=== PATIENT | female | born 1970 | race Hispanic/Latino ===

== ENCOUNTER 2023-02-16 13:51 | Inpatient (IN) | payer OTHER ==
[~2023-02-16] VITALS: Ht 152.4 cm; Wt 98.2 kg
[2023-02-16 17:07] VITALS: BP 159/86; PULSE 75; RESP 18
[2023-02-16 18:01] VITALS: O2SAT 96
[2023-02-16 20:00] VITALS: BP 154/89; PULSE 82; RESP 20; O2SAT 95
[2023-02-16] MEDS ORDERED: HEPARIN 25,000 UNITS/250ML D5W 250 ML IV ONE (22:01)
[2023-02-16] MEDS: HEPARIN 25,000 UNITS/250ML D5W 250 ML IV PRN (22:21)
[2023-02-17] VITALS (8 sets, daily range): BP systolic 147–176; BP diastolic 79–106; PULSE 73–84; RESP 18–20; O2SAT 94–96
[2023-02-17] MEDS ORDERED: HEPARIN 5,000 UNIT VIAL IV SCH (01:40)
[2023-02-17 03:59] LABS: HEMATOCRIT 32.5 % (36-48); MEAN CORPUSCULAR HEMOGLOBIN 28.2 pg (27.0-33.0); MEAN CORPUSCULAR HGB CONC 30.2 g/dL (32.0-36.0); MEAN CORPUSCULAR VOLUME 93.7 fL (79-99); PLATELET COUNT (AUTO) 229 K/uL (130-400); RED BLOOD CELL COUNT(AUTO) 3.47 MIL/uL (4.00-5.50); RED CELL DISTRIBUTION WIDTH 15.9 % (11.0-15.5); WHITE BLOOD COUNT (AUTO) 7.5 K/uL (4.8-10.8)
[2023-02-17 04:13] LABS: INR 0.99 (0.85-1.15); PROTHROMBIN TIME 11.5 SEC (9.6-11.6)
[2023-02-17 04:15] LABS: CREATININE 3.5 mg/dL (0.5-1.5); POTASSIUM 3.7 mmol/L (3.5-5.1)
[2023-02-17 04:28] LABS: ALBUMIN 2.2 g/dL (3.5-5.0); B-TYPE NATRIURETIC PEPTIDE 1920 pg/mL (0-100); BILIRUBIN,TOTAL 0.3 mg/dL (0.2-1.0); TOTAL PROTEIN, SERUM 6.2 g/dL (6.0-8.3)
[2023-02-17 04:31] LABS: HEMOGLOBIN A1C 7.8 % (4.0-6.0)
[2023-02-17 04:36] LABS: PARTIAL THROMBOPLASTIN TIME > 139.0 SEC (26.3-35.5)
[2023-02-17] MEDS ORDERED: LISI40TA9 PO (07:57)
[2023-02-17] MEDS ORDERED: METOPROLOL TARTRATE 25 MG TAB PO ONE (08:30)
[2023-02-17] MEDS ORDERED: CEFAZOLIN SODIUM 1 GM VIAL ONE (11:59)
[2023-02-17] MEDS ORDERED: PAPAVERINE HCL 30 MG/ML 2ML VIAL ONE (11:59)
[2023-02-17] MEDS ORDERED: NOREPINEPHRINE BITARTRATE 8 MG in 0.9% NACL 250ML 250 ML IV PRN (12:30)
[2023-02-17] MEDS ORDERED: EPINEPHRINE PF 1MG (1:1,000) 10 MG in 0.9% NACL 250ML 240 ML IV PRN (12:30)
[2023-02-17] MEDS ORDERED: AMINOCAPROIC ACID 5,000MG VIAL 15,000 MG in 0.9% NACL 500ML IV.SOLN 420 ML IV PRN (12:30)
[2023-02-17] MEDS ORDERED: AMLODIPINE 5 MG TAB PO SCH (13:30)
[2023-02-17] MEDS ORDERED: ONDANSETRON 4MG INJ IV PRN (13:30)
[2023-02-17] MEDS ORDERED: POLYETHYLENE GLYCOL 3350 17 GM POWD.PACK PO PRN (13:30)
[2023-02-17] MEDS ORDERED: DOCUSATE SODIUM 100 MG CAP PO PRN (13:30)
[2023-02-17] MEDS ORDERED: ALPRAZOLAM 0.5 MG TABLET PO PRN (13:30)
[2023-02-17] MEDS: INSULIN GLARGINE 100 UNITS/ML 10 ML VIAL SQ SCH ×2 (13:30→16:43)
[2023-02-17] MEDS ORDERED: BUMETANIDE 1MG/4ML VIAL IVP SCH (13:30)
[2023-02-17] MEDS ORDERED: LACTULOSE 20 GM/30 ML UDCUP PO PRN (13:30)
[2023-02-17] MEDS ORDERED: DIPHENHYDRAMINE HCL 25 MG CAPSULE PO PRN (13:30)
[2023-02-17] MEDS ORDERED: DiphenhydrAMINE HCL 50 MG/ML VIAL IV PRN (13:30)
[2023-02-17] MEDS ORDERED: ACETAMINOPHEN 325 MG TAB PO PRN ×2 (13:30)
[2023-02-17] MEDS ORDERED: GUAIFENESIN-DM 200/20 MG 10 ML PO PRN (13:30)
[2023-02-17] MEDS ORDERED: HYDRALAZINE 25MG TABLET PO PRN (13:30)
[2023-02-17] MEDS ORDERED: NITROGLYCERIN 0.4 MG SL TAB SL PRN (13:30)
[2023-02-17] MEDS ORDERED: GUAIFENESIN SUGAR-FREE 100 MG/5 ML UDCUP PO PRN (13:30)
[2023-02-17] MEDS ORDERED: ZOLPIDEM TARTRATE 5 MG TAB PO PRN (13:30)
[2023-02-17] MEDS: FUROSEMIDE 40MG VIAL IV SCH (14:17)
[2023-02-17] MEDS: HEPARIN 25,000 UNITS/250ML D5W 250 ML IV PRN (14:23)
[2023-02-17 15:44] LABS: APPEARANCE,URINE CLEAR (CLEAR); BILIRUBIN,URINE NEGATIVE (NEGATIVE); COLOR,URINE LIGHT-YELLOW (YELLOW); GLUCOSE, URINE (UA) 300 mg/dL (NEGATIVE); KETONES,URINE NEGATIVE (NEGATIVE); LEUKOCYTE ESTERASE ,URINE NEGATIVE Leu/uL (NEGATIVE); NITRATE,URINE NEGATIVE (NEGATIVE); OCCULT BLOOD,URINE SMALL (NEGATIVE); PH,URINE 7.5 (5.0-8.0); PROTEIN,URINE 600 mg/dL (NEGATIVE); UROBILINOGEN,URINE 0.2 mg/dL (0.2-1.0)
[2023-02-17 15:50] LABS: MUCUS,URINE RARE LPF (None Seen); SQUAMOUS EPITHELIAL CELL,UR RARE /HPF (0-2)
[2023-02-17] MEDS ORDERED: GLUCAGON 1MG KIT 1 MG ML IM PRN (16:00)
[2023-02-17] MEDS ORDERED: DEXTROSE 50%-WATER 50 ML DISP.SYRIN IV PRN (16:00)
[2023-02-17] MEDS: INSULIN HUMULIN R 100 UNIT/ML 3ML SQ SCH ×2 (16:43→21:41)
[2023-02-17] MEDS: CEFAZOLIN SODIUM 2 GM VIAL IVPB SCH (18:10)
[2023-02-17] MEDS: CHLORHEXIDINE GLUCONATE 15 ML MOUTHWASH MM SCH (21:00)
[2023-02-17] MEDS: MUPIROCIN OINTMENT 22 GM TUBE TP SCH ×2 (21:00→22:30)
[2023-02-17] MEDS: FAMOTIDINE 20MG TAB PO SCH (21:41)
[2023-02-18] VITALS (13 sets, daily range): BP systolic 127–172; BP diastolic 62–88; PULSE 67–84; RESP 18–21; O2SAT 92–96
[2023-02-18] MEDS ORDERED: METOPROLOL TARTRATE 25 MG TAB PO ONE (01:00)
[2023-02-18] MEDS ORDERED: AMLODIPINE 5 MG TAB PO ONE (01:00)
[2023-02-18] MEDS: NITROGLYCERIN 1GM OINT 1 INCH/1GM TD SCH ×4 (01:25→17:30)
[2023-02-18] MEDS: FUROSEMIDE 40MG VIAL IV SCH ×2 (01:26→13:40)
[2023-02-18] MEDS: INSULIN HUMULIN R 100 UNIT/ML 3ML SQ SCH ×4 (05:54→20:41)
[2023-02-18] MEDS: HEPARIN 25,000 UNITS/250ML D5W 250 ML IV PRN (06:15)
[2023-02-18 06:50] LABS: BASOPHILS # (AUTO) 0.04 K/uL (0.00-0.20); BASOPHILS % (AUTO) 0.6 % (0.0-5.0); EOSINOPHILS # (AUTO) 0.33 K/uL (0.00-0.70); EOSINOPHILS % (AUTO) 4.9 % (0.0-8.0); HEMATOCRIT 32.8 % (36-48); IMMATURE GRANULOCYTE ABSOLUTE 0.01 K/uL (0-1); LYMPHOCYTES # (AUTO) 2.4 K/uL (1.0-4.8); LYMPHOCYTES % (AUTO) 35.4 % (21.0-51.0); MEAN CORPUSCULAR HEMOGLOBIN 27.9 pg (27.0-33.0); MEAN CORPUSCULAR HGB CONC 29.6 g/dL (32.0-36.0); MEAN CORPUSCULAR VOLUME 94.3 fL (79-99); MONOCYTES # (AUTO) 0.9 K/uL (0.1-1.0); MONOCYTES % (AUTO) 13.6 % (3.0-13.0); NEUTROPHILS % (AUTO) 45.4 % (40.0-77.0); PLATELET COUNT (AUTO) 247 K/uL (130-400); RED BLOOD CELL COUNT(AUTO) 3.48 MIL/uL (4.00-5.50); RED CELL DISTRIBUTION WIDTH 16.1 % (11.0-15.5); WHITE BLOOD COUNT (AUTO) 6.7 K/uL (4.8-10.8)
[2023-02-18 07:02] LABS: CREATININE 3.6 mg/dL (0.5-1.5); POTASSIUM 3.7 mmol/L (3.5-5.1)
[2023-02-18] MEDS: METOPROLOL TARTRATE 25 MG TAB PO SCH ×2 (08:29→20:40)
[2023-02-18] MEDS: AMLODIPINE 5 MG TAB PO SCH ×2 (08:29→20:39)
[2023-02-18] MEDS: FAMOTIDINE 20MG TAB PO SCH ×2 (08:29→20:39)
[2023-02-18] MEDS: MUPIROCIN OINTMENT 22 GM TUBE TP SCH ×2 (08:30→20:45)
[2023-02-18] MEDS: CHLORHEXIDINE GLUCONATE 15 ML MOUTHWASH MM SCH ×2 (08:30→20:46)
[2023-02-18] MEDS: INSULIN GLARGINE 100 UNITS/ML 10 ML VIAL SQ SCH ×2 (08:32→17:31)
[2023-02-18] MEDS: CEFAZOLIN SODIUM 2 GM VIAL IVPB SCH (16:30)
[2023-02-19] VITALS (8 sets, daily range): BP systolic 135–156; BP diastolic 73–85; PULSE 70–77; RESP 18–20; O2SAT 92–99
[2023-02-19] MEDS: HEPARIN 25,000 UNITS/250ML D5W 250 ML IV PRN ×2 (00:07→19:19)
[2023-02-19] MEDS: NITROGLYCERIN 1GM OINT 1 INCH/1GM TD SCH ×5 (00:38→23:23)
[2023-02-19] MEDS: FUROSEMIDE 40MG VIAL IV SCH ×4 (01:40→20:17)
[2023-02-19 01:48] LABS: BASOPHILS # (AUTO) 0.06 K/uL (0.00-0.20); BASOPHILS % (AUTO) 0.7 % (0.0-5.0); EOSINOPHILS # (AUTO) 0.37 K/uL (0.00-0.70); EOSINOPHILS % (AUTO) 4.4 % (0.0-8.0); HEMATOCRIT 34.2 % (36-48); IMMATURE GRANULOCYTE ABSOLUTE 0.03 K/uL (0-1); LYMPHOCYTES # (AUTO) 2.8 K/uL (1.0-4.8); LYMPHOCYTES % (AUTO) 33.5 % (21.0-51.0); MEAN CORPUSCULAR HEMOGLOBIN 27.9 pg (27.0-33.0); MEAN CORPUSCULAR HGB CONC 29.8 g/dL (32.0-36.0); MEAN CORPUSCULAR VOLUME 93.4 fL (79-99); MONOCYTES # (AUTO) 0.9 K/uL (0.1-1.0); MONOCYTES % (AUTO) 11.2 % (3.0-13.0); NEUTROPHILS # (AUTO) 4.2 K/uL (1.8-7.7); NEUTROPHILS % (AUTO) 49.8 % (40.0-77.0); PLATELET COUNT (AUTO) 240 K/uL (130-400); RED BLOOD CELL COUNT(AUTO) 3.66 MIL/uL (4.00-5.50); RED CELL DISTRIBUTION WIDTH 15.7 % (11.0-15.5); WHITE BLOOD COUNT (AUTO) 8.4 K/uL (4.8-10.8)
[2023-02-19 01:57] LABS: CREATININE 3.7 mg/dL (0.5-1.5); POTASSIUM 3.8 mmol/L (3.5-5.1)
[2023-02-19] MEDS ORDERED: KCL 20 MEQ ERTAB PO ONE (05:40)
[2023-02-19] MEDS: INSULIN HUMULIN R 100 UNIT/ML 3ML SQ SCH ×4 (07:30→20:18)
[2023-02-19] MEDS: INSULIN GLARGINE 100 UNITS/ML 10 ML VIAL SQ SCH ×2 (07:30→16:30)
[2023-02-19] MEDS: AMLODIPINE 5 MG TAB PO SCH ×2 (08:50→20:16)
[2023-02-19] MEDS: METOPROLOL TARTRATE 25 MG TAB PO SCH ×2 (08:50→20:16)
[2023-02-19] MEDS: FAMOTIDINE 20MG TAB PO SCH ×2 (08:50→20:16)
[2023-02-19] MEDS: MUPIROCIN OINTMENT 22 GM TUBE TP SCH ×2 (08:51→20:25)
[2023-02-19] MEDS: CHLORHEXIDINE GLUCONATE 15 ML MOUTHWASH MM SCH ×2 (08:51→20:25)
[2023-02-19] MEDS ORDERED: CEFAZOLIN SODIUM 1 GM VIAL IVPB SCH (11:00)
[2023-02-19] MEDS: ASPIRIN 81MG CHEW TAB PO SCH (12:23)
[2023-02-19 12:48] LABS: PROTEIN,URINE RANDOM 481.7 mg/dL (0-11.9)
[2023-02-19 14:56] LABS: INR 1.01 (0.85-1.15); PROTHROMBIN TIME 11.7 SEC (9.6-11.6)
[2023-02-19 14:58] LABS: PARTIAL THROMBOPLASTIN TIME 57.3 SEC (26.3-35.5)
[2023-02-19] MEDS ORDERED: ATORVASTATIN 40 MG TABLET PO SCH (21:00)
[2023-02-20] VITALS (19 sets, daily range): BP systolic 95–191; BP diastolic 43–104; PULSE 68–87; RESP 12–20; TEMP 96.2; O2SAT 95–100
[2023-02-20 04:50] LABS: BASOPHILS # (AUTO) 0.04 K/uL (0.00-0.20); BASOPHILS % (AUTO) 0.5 % (0.0-5.0); EOSINOPHILS % (AUTO) 5.1 % (0.0-8.0); HEMATOCRIT 32.7 % (36-48); IMMATURE GRANULOCYTE ABSOLUTE 0.01 K/uL (0-1); LYMPHOCYTES # (AUTO) 2.7 K/uL (1.0-4.8); LYMPHOCYTES % (AUTO) 34.5 % (21.0-51.0); MEAN CORPUSCULAR HEMOGLOBIN 27.9 pg (27.0-33.0); MEAN CORPUSCULAR VOLUME 93.2 fL (79-99); MONOCYTES # (AUTO) 0.9 K/uL (0.1-1.0); MONOCYTES % (AUTO) 11.8 % (3.0-13.0); NEUTROPHILS # (AUTO) 3.8 K/uL (1.8-7.7); PLATELET COUNT (AUTO) 236 K/uL (130-400); RED BLOOD CELL COUNT(AUTO) 3.51 MIL/uL (4.00-5.50); RED CELL DISTRIBUTION WIDTH 15.8 % (11.0-15.5); WHITE BLOOD COUNT (AUTO) 7.9 K/uL (4.8-10.8)
[2023-02-20 05:05] LABS: CREATININE 3.7 mg/dL (0.5-1.5); POTASSIUM 3.9 mmol/L (3.5-5.1)
[2023-02-20 05:09] LABS: ALBUMIN 2.2 g/dL (3.5-5.0); BILIRUBIN,TOTAL 0.2 mg/dL (0.2-1.0); PHOSPHORUS 4.5 mg/dL (2.5-4.9); TOTAL PROTEIN, SERUM 6.2 g/dL (6.0-8.3)
[2023-02-20 05:10] LABS: INR 0.99 (0.85-1.15); PROTHROMBIN TIME 11.5 SEC (9.6-11.6)
[2023-02-20 05:11] LABS: PARTIAL THROMBOPLASTIN TIME 42.9 SEC (26.3-35.5)
[2023-02-20 05:19] LABS: B-TYPE NATRIURETIC PEPTIDE 1480 pg/mL (0-100)
[2023-02-20 05:38] LABS: % IRON SATURATION 8.9 % (22-44)
[2023-02-20] MEDS: NITROGLYCERIN 1GM OINT 1 INCH/1GM TD SCH ×2 (06:00→12:10)
[2023-02-20] MEDS: INSULIN HUMULIN R 100 UNIT/ML 3ML SQ SCH ×2 (06:25→11:00)
[2023-02-20] MEDS: ASPIRIN 81MG CHEW TAB PO SCH (07:18)
[2023-02-20] MEDS: AMLODIPINE 5 MG TAB PO SCH (07:19)
[2023-02-20] MEDS: FAMOTIDINE 20MG TAB PO SCH (07:19)
[2023-02-20] MEDS ORDERED: EPINEPHRINE PF 1MG (1:1,000) 10 MG in 0.9% NACL 250ML 240 ML IV PRN (08:00)
[2023-02-20] MEDS ORDERED: NOREPINEPHRINE BITARTRATE 8 MG in DEXTROSE 5%-WATER 250 ML IV PRN (08:00)
[2023-02-20] MEDS ORDERED: CEFAZOLIN SODIUM 2 GM VIAL IVPB SCH (08:00)
[2023-02-20] MEDS ORDERED: AMINOCAPROIC ACID 5,000MG VIAL 15,000 MG in 0.9% NACL 500ML IV.SOLN 420 ML IV PRN (08:00)
[2023-02-20] MEDS: METOPROLOL TARTRATE 25 MG TAB PO SCH (08:32)
[2023-02-20] MEDS: FUROSEMIDE 40MG VIAL IV SCH ×2 (08:32→14:27)
[2023-02-20] MEDS: MUPIROCIN OINTMENT 22 GM TUBE TP SCH (08:33)
[2023-02-20] MEDS: INSULIN GLARGINE 100 UNITS/ML 10 ML VIAL SQ SCH (08:40)
[2023-02-20] MEDS: CHLORHEXIDINE GLUCONATE 15 ML MOUTHWASH MM SCH (08:40)
[2023-02-20] MEDS ORDERED: IRON SUCROSE COMPLEX 300 MG in 0.9% NACL 250ML 250 ML IV ONE (09:00)
[2023-02-20] MEDS ORDERED: NITROGLYCERIN 50MG/D5W 250ML 1 BOT ONE (09:04)
[2023-02-20] MEDS: EPOETIN ALFA-EPBX (NON-ESRD) 10,000 UNIT/ML VIAL SQ SCH (09:46)
[2023-02-20] MEDS ORDERED: DEXTROSE 50%-WATER 50 ML DISP.SYRIN IV ONE (14:30)
[2023-02-20] MEDS ORDERED: DELNIDO FORMULA 1 BAG IV SCH (14:30)
[2023-02-20] MEDS ORDERED: ALBUMIN (HUMAN) 5% 250 ML IV PRN (16:00)
[2023-02-20] MEDS ORDERED: 0.9%NACL 10ML VIAL IVP PRN (16:00)
[2023-02-20] MEDS ORDERED: MORPHINE 2 MG SYG IV PRN ×2 (16:00→16:30)
[2023-02-20] MEDS ORDERED: ONDANSETRON 4MG INJ IV PRN (16:00)
[2023-02-20] MEDS ORDERED: 0.9%NACL 1000ML 1,000 ML IV SCH (16:00)
[2023-02-20] MEDS ORDERED: GLUCAGON 1MG KIT 1 MG ML IM PRN (16:00)
[2023-02-20] MEDS ORDERED: EPINEPHRINE 10 MG in 0.9% NACL 250ML IV PRN (16:00)
[2023-02-20] MEDS ORDERED: POTASSIUM PHOS 15 mMOL+NS250ML 250 ML IV PRN (16:00)
[2023-02-20] MEDS ORDERED: ACETAMINOPHEN 650 MG SUPPOSITORY RC PRN (16:00)
[2023-02-20] MEDS ORDERED: NITROGLYCERIN 50MG/D5W 250ML 250 BOT IV SCH (16:00)
[2023-02-20] MEDS ORDERED: 0.9% NACL 500ML IV.SOLN 500 ML IV SCH (16:00)
[2023-02-20] MEDS ORDERED: TRAMADOL HCL 50 MG TABLET PO PRN (16:00)
[2023-02-20] MEDS ORDERED: INSULIN REGULAR, HUMAN 3ML 100 UNIT in 0.9%NACL 100ML 99 ML IV SCH ×2 (16:00)
[2023-02-20] MEDS ORDERED: MORPHINE 4 MG SYG IV PRN (16:00)
[2023-02-20] MEDS ORDERED: AMINOCAPROIC ACID 5,000MG VIAL 15,000 MG in 0.9% NACL 250ML 250 ML IV SCH (16:00)
[2023-02-20] MEDS ORDERED: DEXTROSE 50%-WATER 50 ML DISP.SYRIN IV PRN (16:00)
[2023-02-20] MEDS ORDERED: PROPOFOL 1000 MG/100 ML 100 ML IV PRN (16:00)
[2023-02-20] MEDS ORDERED: PROTAMINE SULFATE 10 MG/ML 25ML VIAL IV ONE (16:28)
[2023-02-20] MEDS ORDERED: NOREPINEPHRINE BITARTRATE 1 MG/1 ML ML IV ONE (16:28)
[2023-02-20] MEDS ORDERED: HEPARIN 10,000 UNIT/10ML (1,000 UNIT/ML) VIAL ONE ×2 (16:28→16:51)
[2023-02-20] MEDS ORDERED: EPINEPHRINE PF 1MG (1:1,000) 1 MG/ML AMP ONE (16:28)
[2023-02-20] MEDS ORDERED: AMINOCAPROIC ACID 5,000MG VIAL ONE (16:28)
[2023-02-20] MEDS ORDERED: ESMOLOL HCL 10 MG/ML 10 ML VIAL ONE (16:28)
[2023-02-20] MEDS ORDERED: LIDOCAINE PF 100MG/5ML (2%) SYRINGE 5ML ONE (16:28)
[2023-02-20] MEDS ORDERED: FENTANYL CITRATE PF 50 MCG/1 ML 20ML VIAL IJ ONE (16:29)
[2023-02-20] MEDS ORDERED: PROPOFOL 10 MG/ML 20ML VIAL IV ONE (16:29)
[2023-02-20] MEDS ORDERED: MIDAZOLAM HCL 1 MG/ML 2ML VIAL ONE (16:29)
[2023-02-20] MEDS ORDERED: ROCURONIUM 10MG/1ML SYR 10 MG/ML ML ONE (16:29)
[2023-02-20] MEDS ORDERED: KETAMINE 50MG/ML SYRINGE 50 MG/ML DISP.SYRIN ONE ×2 (16:29→19:12)
[2023-02-20] MEDS ORDERED: NOREPINEPHRIN 8MG/250ML NS 250 ML IV PRN (16:30)
[2023-02-20] MEDS ORDERED: CEFAZOLIN SODIUM 1 GM VIAL ONE (17:18)
[2023-02-20] MEDS ORDERED: PAPAVERINE HCL 30 MG/ML 2ML VIAL ONE (17:18)
[2023-02-20] MEDS ORDERED: NICARDIPINE 25MG INJ IV ONE (17:22)
[2023-02-20] MEDS ORDERED: DELNIDO FORMULA 1 BAG IV ONE (17:27)
[2023-02-20 17:51] LABS: ABG BASE EXCESS -2.5 mmol/L (-2.0-3.0); ABG HCO3 21.4 mmol/L (21.0-28.0); ABG OXYGEN SATURATION 99.8 % (95.0-99.0); ABG PCO2 34 mmHg (32-45); ABG PH 7.424 (7.35-7.450); CARBON MONOXIDE 0.3; DEVICE COMMENT 1; HHb 0.2; PO2, ARTERIAL BG 368.5 mmHg (83.0-108.0)
[2023-02-20] MEDS ORDERED: PROTAMINE SULFATE 10 MG/ML 5 ML VIAL ONE (18:50)
[2023-02-20] MEDS ORDERED: ASPIRIN 81MG CHEW TAB NG ONE (19:00)
[2023-02-20 19:14] LABS: ABG BASE EXCESS -0.3 mmol/L (-2.0-3.0); ABG OXYGEN SATURATION 99.7 % (95.0-99.0); ABG PCO2 32 mmHg (32-45); ABG PH 7.471 (7.35-7.450); CARBON MONOXIDE 0.3; DEVICE COMMENT 3; HHb 0.3
[2023-02-20 20:14] LABS: ABG BASE EXCESS -3.4 mmol/L (-2.0-3.0); ABG HCO3 21.1 mmol/L (21.0-28.0); ABG OXYGEN SATURATION 99.4 % (95.0-99.0); ABG PCO2 36 mmHg (32-45); ABG PH 7.391 (7.35-7.450); CARBON MONOXIDE 0.3; HHb 0.6; PO2, ARTERIAL BG 453.9 mmHg (83.0-108.0); VENT MODE, BG SIMV,PS10 (ROOM AIR)
[2023-02-20 20:22] LABS: HEMATOCRIT 26.9 % (36-48); MEAN CORPUSCULAR HEMOGLOBIN 28.5 pg (27.0-33.0); MEAN CORPUSCULAR HGB CONC 31.2 g/dL (32.0-36.0); MEAN CORPUSCULAR VOLUME 91.2 fL (79-99); RED BLOOD CELL COUNT(AUTO) 2.95 MIL/uL (4.00-5.50); RED CELL DISTRIBUTION WIDTH 15.8 % (11.0-15.5); WHITE BLOOD COUNT (AUTO) 21.3 K/uL (4.8-10.8)
[2023-02-20 20:32] LABS: INR 1.13 (0.85-1.15)
[2023-02-20 20:33] LABS: PARTIAL THROMBOPLASTIN TIME 26.3 SEC (26.3-35.5)
[2023-02-20 20:34] LABS: CREATININE 3.4 mg/dL (0.5-1.5); MAGNESIUM 1.4 mg/dL (1.80-2.40); POTASSIUM 3.2 mmol/L (3.5-5.1)
[2023-02-20] MEDS ORDERED: SODIUM BICARB 50MEQ 50ML VIAL 100 ML ONE (20:41)
[2023-02-20] MEDS: DOCUSATE SODIUM 100 MG CAP PO SCH (20:45)
[2023-02-20] MEDS: POTASSIUM CHLORIDE 20MEQ/100ML 100 ML IV PRN ×3 (20:45→22:46)
[2023-02-20] MEDS: CEFAZOLIN SODIUM 2 GM VIAL IVPB SCH (20:45)
[2023-02-20] MEDS: SODIUM BICARB 50MEQ 50ML VIAL IV PRN ×3 (20:47→23:28)
[2023-02-20] MEDS: CALCIUM GLUC 1GM 1 GM in 0.9%NACL 50ML 50 ML IV PRN ×2 (20:49→23:28)
[2023-02-20] MEDS ORDERED: FAMOTIDINE 20MG VIAL IV SCH (21:00)
[2023-02-20] MEDS ORDERED: DEXMEDETOMIDINE 400MCG/NS100ML IV ONE (21:05)
[2023-02-20 21:18] LABS: ABG BASE EXCESS -0.2 mmol/L (-2.0-3.0); ABG HCO3 23.8 mmol/L (21.0-28.0); ABG OXYGEN SATURATION 99.4 % (95.0-99.0); ABG PCO2 36 mmHg (32-45); ABG PH 7.439 (7.35-7.450); CARBON MONOXIDE 0.3; HHb 0.6; VENT MODE, BG SIMV (ROOM AIR)
[2023-02-20] MEDS ORDERED: DEXMEDETOMIDINE 400MCG/NS100ML IV SCH (22:00)
[2023-02-20 22:19] LABS: ABG BASE EXCESS -2.2 mmol/L (-2.0-3.0); ABG HCO3 21.7 mmol/L (21.0-28.0); ABG OXYGEN SATURATION 97.1 % (95.0-99.0); ABG PCO2 34 mmHg (32-45); ABG PH 7.425 (7.35-7.450); CARBON MONOXIDE 0.3; HHb 2.9; PO2, ARTERIAL BG 99.5 mmHg (83.0-108.0); VENT MODE, BG SIMV (ROOM AIR)
[2023-02-20] MEDS: MAGNESIUM 2GM PREMIX 50ML 50 ML IV PRN (22:23)
[2023-02-20 23:20] LABS: ABG BASE EXCESS -1.2 mmol/L (-2.0-3.0); ABG HCO3 22.5 mmol/L (21.0-28.0); ABG OXYGEN SATURATION 97.3 % (95.0-99.0); ABG PCO2 34 mmHg (32-45); ABG PH 7.443 (7.35-7.450); CARBON MONOXIDE 0.3; HHb 2.7; PO2, ARTERIAL BG 101.8 mmHg (83.0-108.0); VENT MODE, BG SIMV (ROOM AIR)
[2023-02-21] VITALS (144 sets, daily range): BP systolic 94–233; BP diastolic 40–122; PULSE 66–84; RESP 5–195; TEMP 97.2–98.4; O2SAT 99–100
[2023-02-21 00:22] LABS: ABG BASE EXCESS 0.6 mmol/L (-2.0-3.0); ABG HCO3 23.9 mmol/L (21.0-28.0); ABG OXYGEN SATURATION 98.2 % (95.0-99.0); ABG PCO2 34 mmHg (32-45); ABG PH 7.468 (7.35-7.450); CARBON MONOXIDE 0.3; HHb 1.8; PO2, ARTERIAL BG 128.6 mmHg (83.0-108.0); VENT MODE, BG SIMV (ROOM AIR)
[2023-02-21] MEDS: POTASSIUM CHLORIDE 20MEQ/100ML 100 ML IV PRN ×2 (00:37→01:31)
[2023-02-21 01:22] LABS: ABG BASE EXCESS 0.7 mmol/L (-2.0-3.0); ABG OXYGEN SATURATION 97.4 % (95.0-99.0); ABG PCO2 33 mmHg (32-45); ABG PH 7.475 (7.35-7.450); CARBON MONOXIDE 0.3; HHb 2.6; PO2, ARTERIAL BG 103.1 mmHg (83.0-108.0); VENT MODE, BG SIMV (ROOM AIR)
[2023-02-21] MEDS: CALCIUM GLUC 1GM 1 GM in 0.9%NACL 50ML 50 ML IV PRN ×2 (01:29→09:58)
[2023-02-21 02:27] LABS: ABG BASE EXCESS 0.1 mmol/L (-2.0-3.0); ABG HCO3 23.8 mmol/L (21.0-28.0); ABG OXYGEN SATURATION 97.7 % (95.0-99.0); ABG PCO2 35 mmHg (32-45); ABG PH 7.447 (7.35-7.450); CARBON MONOXIDE 0.3; HHb 2.3; PO2, ARTERIAL BG 109.3 mmHg (83.0-108.0); VENT MODE, BG SIMV (ROOM AIR)
[2023-02-21 03:17] LABS: ABG BASE EXCESS -0.8 mmol/L (-2.0-3.0); ABG HCO3 23.1 mmol/L (21.0-28.0); ABG OXYGEN SATURATION 97.4 % (95.0-99.0); ABG PCO2 35 mmHg (32-45); ABG PH 7.434 (7.35-7.450); CARBON MONOXIDE 0.3; HHb 2.6; PO2, ARTERIAL BG 105.1 mmHg (83.0-108.0); VENT MODE, BG SIMV (ROOM AIR)
[2023-02-21 04:11] LABS: ABG BASE EXCESS 0.8 mmol/L (-2.0-3.0); ABG HCO3 25.5 mmol/L (21.0-28.0); ABG OXYGEN SATURATION 97.1 % (95.0-99.0); ABG PCO2 41 mmHg (32-45); ABG PH 7.414 (7.35-7.450); CARBON MONOXIDE 0.3; HHb 2.9; PO2, ARTERIAL BG 100.3 mmHg (83.0-108.0); VENT MODE, BG SIMV (ROOM AIR)
[2023-02-21 04:17] LABS: HEMATOCRIT 29.7 % (36-48); MEAN CORPUSCULAR HEMOGLOBIN 27.3 pg (27.0-33.0); MEAN CORPUSCULAR VOLUME 91.1 fL (79-99); RED BLOOD CELL COUNT(AUTO) 3.26 MIL/uL (4.00-5.50); RED CELL DISTRIBUTION WIDTH 15.8 % (11.0-15.5); WHITE BLOOD COUNT (AUTO) 18.7 K/uL (4.8-10.8)
[2023-02-21 04:39] LABS: CREATININE 3.4 mg/dL (0.5-1.5); MAGNESIUM 1.7 mg/dL (1.80-2.40); PHOSPHORUS 3.7 mg/dL (2.5-4.9); POTASSIUM 4.4 mmol/L (3.5-5.1)
[2023-02-21 04:42] LABS: INR 1.12 (0.85-1.15); PARTIAL THROMBOPLASTIN TIME 23.4 SEC (26.3-35.5)
[2023-02-21] MEDS: MAGNESIUM 2GM PREMIX 50ML 50 ML IV PRN (05:09)
[2023-02-21] MEDS: CEFAZOLIN SODIUM 2 GM VIAL IVPB SCH ×2 (05:10→14:59)
[2023-02-21 05:16] LABS: ABG BASE EXCESS 0.6 mmol/L (-2.0-3.0); ABG HCO3 24.4 mmol/L (21.0-28.0); ABG OXYGEN SATURATION 97.1 % (95.0-99.0); ABG PCO2 36 mmHg (32-45); CARBON MONOXIDE 0.3; HHb 2.9; PO2, ARTERIAL BG 98.7 mmHg (83.0-108.0); VENT MODE, BG SIMV (ROOM AIR)
[2023-02-21 06:46] LABS: ABG BASE EXCESS -0.1 mmol/L (-2.0-3.0); ABG HCO3 24.7 mmol/L (21.0-28.0); ABG OXYGEN SATURATION 97.2 % (95.0-99.0); ABG PCO2 41 mmHg (32-45); CARBON MONOXIDE 0.3; DEVICE COMMENT ALINE; HHb 2.8; PO2, ARTERIAL BG 102.7 mmHg (83.0-108.0); VENT MODE, BG SIMV 10 (ROOM AIR)
[2023-02-21] MEDS: FUROSEMIDE 20MG VIAL IV SCH ×2 (08:10→20:20)
[2023-02-21] MEDS: DOCUSATE SODIUM 100 MG CAP PO SCH ×2 (08:10→20:21)
[2023-02-21 09:51] LABS: ABG BASE EXCESS -1.7 mmol/L (-2.0-3.0); ABG HCO3 22.9 mmol/L (21.0-28.0); ABG OXYGEN SATURATION 97.4 % (95.0-99.0); ABG PCO2 38 mmHg (32-45); ABG PH 7.396 (7.35-7.450); CARBON MONOXIDE 0.3; DEVICE COMMENT ALINE; HHb 2.6; PO2, ARTERIAL BG 106.4 mmHg (83.0-108.0); VENT MODE, BG SIMV 10 (ROOM AIR)
[2023-02-21] MEDS ORDERED: CALCIUM GLUC 1GM/10ML VIAL ONE (09:56)
[2023-02-21] MEDS: SODIUM BICARB 50MEQ 50ML VIAL IV PRN (09:58)
[2023-02-21 13:59] LABS: ABG HCO3 26.6 mmol/L (21.0-28.0); ABG OXYGEN SATURATION 96.9 % (95.0-99.0); ABG PCO2 41 mmHg (32-45); ABG PH 7.425 (7.35-7.450); CARBON MONOXIDE 0.3; HHb 3.1; PO2, ARTERIAL BG 97.1 mmHg (83.0-108.0); VENT MODE, BG CAFM (ROOM AIR)
[2023-02-21] MEDS ORDERED: CEFAZOLIN SODIUM 2 GM VIAL ONE (14:57)
[2023-02-21] MEDS: TRAMADOL HCL 50 MG TABLET PO PRN ×2 (14:58→23:12)
[2023-02-21] MEDS: FAMOTIDINE 20MG TAB PO SCH (20:21)
[2023-02-21] MEDS: ATORVASTATIN 40 MG TABLET PO SCH (20:21)
[2023-02-21] MEDS: ACETAMINOPHEN 325 MG TAB PO PRN (20:21)
[2023-02-22] VITALS (115 sets, daily range): BP systolic 105–164; BP diastolic 38–78; PULSE 82–103; RESP 16–197; TEMP 98–98.9; O2SAT 94–100
[2023-02-22] MEDS: ACETAMINOPHEN 325 MG TAB PO PRN (03:39)
[2023-02-22 04:50] LABS: HEMATOCRIT 26.5 % (36-48); MEAN CORPUSCULAR HEMOGLOBIN 28.4 pg (27.0-33.0); MEAN CORPUSCULAR HGB CONC 29.8 g/dL (32.0-36.0); MEAN CORPUSCULAR VOLUME 95.3 fL (79-99); RED BLOOD CELL COUNT(AUTO) 2.78 MIL/uL (4.00-5.50); RED CELL DISTRIBUTION WIDTH 16.1 % (11.0-15.5); WHITE BLOOD COUNT (AUTO) 19.3 K/uL (4.8-10.8)
[2023-02-22 05:14] LABS: CREATININE 3.7 mg/dL (0.5-1.5); POTASSIUM 4.7 mmol/L (3.5-5.1)
[2023-02-22 05:45] LABS: INR 1.06 (0.85-1.15); PROTHROMBIN TIME 12.3 SEC (9.6-11.6)
[2023-02-22 05:47] LABS: PARTIAL THROMBOPLASTIN TIME 29.9 SEC (26.3-35.5)
[2023-02-22] MEDS: EPOETIN ALFA-EPBX (NON-ESRD) 10,000 UNIT/ML VIAL SQ SCH (08:39)
[2023-02-22] MEDS: DOCUSATE SODIUM 100 MG CAP PO SCH ×2 (08:39→20:22)
[2023-02-22] MEDS: ASPIRIN 81MG CHEW TAB PO SCH (08:39)
[2023-02-22] MEDS: FUROSEMIDE 20 MG TABLET PO SCH ×2 (08:39→20:22)
[2023-02-22] MEDS: METOPROLOL TARTRATE 25 MG TAB PO SCH ×2 (08:40→20:22)
[2023-02-22] MEDS: CLOPIDOGREL 75MG TAB PO SCH (14:53)
[2023-02-22] MEDS: FAMOTIDINE 20MG TAB PO SCH (20:22)
[2023-02-22] MEDS: ATORVASTATIN 40 MG TABLET PO SCH (20:22)
[2023-02-23] VITALS (103 sets, daily range): BP systolic 2–182; BP diastolic 1–156; PULSE 50–94; RESP 16–199; TEMP 97.9–98.8; O2SAT 95–100
[2023-02-23 03:33] LABS: HEMATOCRIT 27.3 % (36-48); MEAN CORPUSCULAR HGB CONC 29.3 g/dL (32.0-36.0); MEAN CORPUSCULAR VOLUME 95.5 fL (79-99); RED BLOOD CELL COUNT(AUTO) 2.86 MIL/uL (4.00-5.50); RED CELL DISTRIBUTION WIDTH 16.1 % (11.0-15.5); WHITE BLOOD COUNT (AUTO) 18.8 K/uL (4.8-10.8)
[2023-02-23 03:40] LABS: CREATININE 3.7 mg/dL (0.5-1.5); POTASSIUM 4.7 mmol/L (3.5-5.1)
[2023-02-23] MEDS: DOCUSATE SODIUM 100 MG CAP PO SCH ×2 (08:24→21:00)
[2023-02-23] MEDS: CLOPIDOGREL 75MG TAB PO SCH (08:24)
[2023-02-23] MEDS: METOPROLOL TARTRATE 25 MG TAB PO SCH ×2 (08:25→21:00)
[2023-02-23] MEDS: ASPIRIN 81MG CHEW TAB PO SCH (08:25)
[2023-02-23] MEDS: FUROSEMIDE 20 MG TABLET PO SCH ×2 (08:29→16:18)
[2023-02-23] MEDS: DEXMEDETOMIDINE 400MCG/NS100ML IV SCH ×2 (12:47→21:20)
[2023-02-23 13:15] LABS: ABG BASE EXCESS -2.5 mmol/L (-2.0-3.0); ABG HCO3 22.9 mmol/L (21.0-28.0); ABG OXYGEN SATURATION 76.6 % (95.0-99.0); ABG PCO2 41 mmHg (32-45); PO2, ARTERIAL BG < 45.0 mmHg (83.0-108.0); VENT MODE, BG RA (ROOM AIR)
[2023-02-23 14:31] LABS: HEMATOCRIT 25.6 % (36-48); MEAN CORPUSCULAR HEMOGLOBIN 27.9 pg (27.0-33.0); MEAN CORPUSCULAR HGB CONC 28.5 g/dL (32.0-36.0); MEAN CORPUSCULAR VOLUME 97.7 fL (79-99); PLATELET COUNT (AUTO) 182 K/uL (130-400); RED BLOOD CELL COUNT(AUTO) 2.62 MIL/uL (4.00-5.50); RED CELL DISTRIBUTION WIDTH 15.9 % (11.0-15.5); WHITE BLOOD COUNT (AUTO) 15.2 K/uL (4.8-10.8)
[2023-02-23 14:38] LABS: CREATININE 3.9 mg/dL (0.5-1.5); POTASSIUM 4.6 mmol/L (3.5-5.1)
[2023-02-23 14:39] LABS: BASOPHILS # (AUTO) 0.07 K/uL (0.00-0.20); BASOPHILS % (AUTO) 0.5 % (0.0-5.0); EOSINOPHILS # (AUTO) 0.05 K/uL (0.00-0.70); EOSINOPHILS % (AUTO) 0.3 % (0.0-8.0); IMMATURE GRANULOCYTE ABSOLUTE 0.09 K/uL (0-1); LYMPHOCYTES # (AUTO) 1.4 K/uL (1.0-4.8); LYMPHOCYTES % (AUTO) 9.1 % (21.0-51.0); MONOCYTES # (AUTO) 1.2 K/uL (0.1-1.0); MONOCYTES % (AUTO) 8.1 % (3.0-13.0); NEUTROPHILS # (AUTO) 12.2 K/uL (1.8-7.7); NEUTROPHILS % (AUTO) 81.4 % (40.0-77.0)
[2023-02-23 14:41] LABS: MAGNESIUM 2.2 mg/dL (1.80-2.40)
[2023-02-23] MEDS: ENOXAPARIN SODIUM 30 MG/0.3 ML SQ SCH (15:51)
[2023-02-23] MEDS: FAMOTIDINE 20MG TAB PO SCH (21:00)
[2023-02-23] MEDS: ATORVASTATIN 40 MG TABLET PO SCH (21:00)
[2023-02-24] VITALS (21 sets, daily range): BP systolic 97–146; BP diastolic 44–82; PULSE 50–83; RESP 12–24; O2SAT 92–95
[2023-02-24] MEDS: FUROSEMIDE 20 MG TABLET PO SCH ×2 (08:10→16:53)
[2023-02-24] MEDS: METOPROLOL TARTRATE 25 MG TAB PO SCH ×2 (08:11→19:59)
[2023-02-24] MEDS: ASPIRIN 81MG CHEW TAB PO SCH (08:11)
[2023-02-24 08:12] LABS: HEMATOCRIT 25.4 % (36-48); MEAN CORPUSCULAR HEMOGLOBIN 28.3 pg (27.0-33.0); MEAN CORPUSCULAR HGB CONC 29.5 g/dL (32.0-36.0); MEAN CORPUSCULAR VOLUME 95.8 fL (79-99); RED BLOOD CELL COUNT(AUTO) 2.65 MIL/uL (4.00-5.50); RED CELL DISTRIBUTION WIDTH 15.9 % (11.0-15.5); WHITE BLOOD COUNT (AUTO) 11.1 K/uL (4.8-10.8)
[2023-02-24] MEDS: DOCUSATE SODIUM 100 MG CAP PO SCH ×2 (08:12→19:59)
[2023-02-24 08:23] LABS: CREATININE 3.9 mg/dL (0.5-1.5); POTASSIUM 4.6 mmol/L (3.5-5.1)
[2023-02-24] MEDS: CLOPIDOGREL 75MG TAB PO SCH (08:23)
[2023-02-24] MEDS: EPOETIN ALFA-EPBX (NON-ESRD) 10,000 UNIT/ML VIAL SQ SCH (08:23)
[2023-02-24] MEDS: ENOXAPARIN SODIUM 30 MG/0.3 ML SQ SCH (08:25)
[2023-02-24] MEDS: PSYLLIUM SEED 1 EACH PACKET PO SCH ×2 (14:59→19:58)
[2023-02-24] MEDS: ATORVASTATIN 40 MG TABLET PO SCH (19:58)
[2023-02-24] MEDS: FAMOTIDINE 20MG TAB PO SCH (20:00)
[2023-02-25] VITALS (73 sets, daily range): BP systolic 105–176; BP diastolic 47–98; PULSE 53–81; RESP 16–28; O2SAT 88–99
[2023-02-25] MEDS ORDERED: ZIPRASIDONE MESYLATE 20 MG/VIAL IM SCH (03:00)
[2023-02-25 03:11] LABS: ABG BASE EXCESS -1.5 mmol/L (-2.0-3.0); ABG HCO3 22.5 mmol/L (21.0-28.0); ABG OXYGEN SATURATION 91.4 % (95.0-99.0); ABG PCO2 36 mmHg (32-45); ABG PH 7.415 (7.35-7.450); PO2, ARTERIAL BG 59.6 mmHg (83.0-108.0); VENT MODE, BG NC (ROOM AIR)
[2023-02-25 04:06] LABS: BASOPHILS # (AUTO) 0.07 K/uL (0.00-0.20); BASOPHILS % (AUTO) 0.7 % (0.0-5.0); EOSINOPHILS # (AUTO) 0.38 K/uL (0.00-0.70); HEMATOCRIT 26.7 % (36-48); IMMATURE GRANULOCYTE ABSOLUTE 0.05 K/uL (0-1); LYMPHOCYTES # (AUTO) 2.4 K/uL (1.0-4.8); LYMPHOCYTES % (AUTO) 25.6 % (21.0-51.0); MEAN CORPUSCULAR HEMOGLOBIN 27.8 pg (27.0-33.0); MEAN CORPUSCULAR HGB CONC 29.6 g/dL (32.0-36.0); MONOCYTES # (AUTO) 1.1 K/uL (0.1-1.0); MONOCYTES % (AUTO) 11.5 % (3.0-13.0); NEUTROPHILS # (AUTO) 5.5 K/uL (1.8-7.7); NEUTROPHILS % (AUTO) 57.7 % (40.0-77.0); NUCLEATED RED BLOOD CELLS 0.3 % (0.0-0.19); PLATELET COUNT (AUTO) 284 K/uL (130-400); RED BLOOD CELL COUNT(AUTO) 2.84 MIL/uL (4.00-5.50); RED CELL DISTRIBUTION WIDTH 15.9 % (11.0-15.5); WHITE BLOOD COUNT (AUTO) 9.5 K/uL (4.8-10.8)
[2023-02-25 04:25] LABS: CREATININE 4.4 mg/dL (0.5-1.5); POTASSIUM 4.3 mmol/L (3.5-5.1)
[2023-02-25] MEDS: DOCUSATE SODIUM 100 MG CAP PO SCH ×2 (08:53→20:08)
[2023-02-25] MEDS: PSYLLIUM SEED 1 EACH PACKET PO SCH ×2 (08:53→20:08)
[2023-02-25] MEDS: ASPIRIN 81MG CHEW TAB PO SCH (08:53)
[2023-02-25] MEDS: METOPROLOL TARTRATE 25 MG TAB PO SCH ×2 (08:54→20:09)
[2023-02-25] MEDS: FUROSEMIDE 20 MG TABLET PO SCH (08:54)
[2023-02-25] MEDS: CLOPIDOGREL 75MG TAB PO SCH (08:55)
[2023-02-25] MEDS: ENOXAPARIN SODIUM 30 MG/0.3 ML SQ SCH (08:55)
[2023-02-25] MEDS ORDERED: ZIPRASIDONE MESYLATE 20 MG/VIAL IM STA (11:13)
[2023-02-25] MEDS ORDERED: METOLAZONE 2.5 MG TABLET PO ONE (11:35)
[2023-02-25] MEDS: BUMETANIDE 1MG/4ML VIAL IVP SCH ×2 (12:23→20:08)
[2023-02-25] MEDS: DEXMEDETOMIDINE 400MCG/NS100ML IV SCH ×2 (12:30→21:48)
[2023-02-25 13:32] LABS: ADD UA MICROSCOPIC YES; APPEARANCE,URINE CLEAR (CLEAR); BILIRUBIN,URINE NEGATIVE (NEGATIVE); COLOR,URINE YELLOW (YELLOW); GLUCOSE, URINE (UA) 200 mg/dL (NEGATIVE); KETONES,URINE NEGATIVE (NEGATIVE); LEUKOCYTE ESTERASE ,URINE 25 Leu/uL (NEGATIVE); NITRATE,URINE NEGATIVE (NEGATIVE); OCCULT BLOOD,URINE SMALL (NEGATIVE); PH,URINE 7.5 (5.0-8.0); PROTEIN,URINE 600 mg/dL (NEGATIVE); UROBILINOGEN,URINE 0.2 mg/dL (0.2-1.0)
[2023-02-25 13:36] LABS: MUCUS,URINE RARE LPF (None Seen); SQUAMOUS EPITHELIAL CELL,UR RARE /HPF (0-2)
[2023-02-25] MEDS: FAMOTIDINE 20MG TAB PO SCH (20:08)
[2023-02-25] MEDS: METOLAZONE 2.5 MG TABLET PO SCH (20:08)
[2023-02-25] MEDS: ATORVASTATIN 40 MG TABLET PO SCH (20:08)
[2023-02-26] VITALS (80 sets, daily range): BP systolic 129–172; BP diastolic 56–99; PULSE 57–61; RESP 16–39; O2SAT 92–100
[2023-02-26] MEDS: DEXMEDETOMIDINE 400MCG/NS100ML IV SCH ×4 (00:30→16:55)
[2023-02-26] MEDS: BUMETANIDE 1MG/4ML VIAL IVP SCH ×2 (04:39→20:42)
[2023-02-26 05:06] LABS: BASOPHILS # (AUTO) 0.06 K/uL (0.00-0.20); BASOPHILS % (AUTO) 0.7 % (0.0-5.0); EOSINOPHILS # (AUTO) 0.55 K/uL (0.00-0.70); EOSINOPHILS % (AUTO) 6.8 % (0.0-8.0); HEMATOCRIT 27.1 % (36-48); IMMATURE GRANULOCYTE ABSOLUTE 0.06 K/uL (0-1); LYMPHOCYTES # (AUTO) 1.9 K/uL (1.0-4.8); LYMPHOCYTES % (AUTO) 23.2 % (21.0-51.0); MEAN CORPUSCULAR HEMOGLOBIN 27.8 pg (27.0-33.0); MEAN CORPUSCULAR HGB CONC 29.5 g/dL (32.0-36.0); MEAN CORPUSCULAR VOLUME 94.1 fL (79-99); MONOCYTES # (AUTO) 0.9 K/uL (0.1-1.0); MONOCYTES % (AUTO) 10.9 % (3.0-13.0); NEUTROPHILS # (AUTO) 4.7 K/uL (1.8-7.7); NEUTROPHILS % (AUTO) 57.7 % (40.0-77.0); NUCLEATED RED BLOOD CELLS 0.2 % (0.0-0.19); PLATELET COUNT (AUTO) 264 K/uL (130-400); RED BLOOD CELL COUNT(AUTO) 2.88 MIL/uL (4.00-5.50); RED CELL DISTRIBUTION WIDTH 15.9 % (11.0-15.5); WHITE BLOOD COUNT (AUTO) 8.1 K/uL (4.8-10.8)
[2023-02-26 05:25] LABS: ALBUMIN 1.5 g/dL (3.5-5.0); ASPARTATE AMINOTRANSFERASE 22 U/L (10-37); BILIRUBIN,TOTAL 0.3 mg/dL (0.2-1.0); CARBON DIOXIDE 25 mmol/L (21-32); CHLORIDE 105 mmol/L (101-111); CREATININE 4.2 mg/dL (0.5-1.5); GLOMERULAR FILTR. RATE CALC 12 mL/min (>90); GLUCOSE,RANDOM 182 mg/dL (70-105); POTASSIUM 4.4 mmol/L (3.5-5.1); SODIUM SERUM 142 mmol/L (136-145); TOTAL PROTEIN, SERUM 5.6 g/dL (6.0-8.3); UREA NITROGEN, BLOOD 62 mg/dL (7-18)
[2023-02-26 05:26] LABS: ALANINE AMINOTRANSFERASE < 6 U/L (12-78); B-TYPE NATRIURETIC PEPTIDE 3760 pg/mL (0-100)
[2023-02-26] MEDS: ASPIRIN 81MG CHEW TAB PO SCH (08:10)
[2023-02-26] MEDS: ENOXAPARIN SODIUM 30 MG/0.3 ML SQ SCH (08:10)
[2023-02-26] MEDS: CLOPIDOGREL 75MG TAB PO SCH (08:10)
[2023-02-26] MEDS: DOCUSATE SODIUM 100 MG CAP PO SCH ×2 (08:10→20:42)
[2023-02-26] MEDS: METOPROLOL TARTRATE 25 MG TAB PO SCH ×2 (08:10→20:42)
[2023-02-26] MEDS: PSYLLIUM SEED 1 EACH PACKET PO SCH ×2 (08:11→21:15)
[2023-02-26] MEDS: METOLAZONE 2.5 MG TABLET PO SCH (08:14)
[2023-02-26] MEDS ORDERED: METOLAZONE 2.5 MG TABLET PO SCH (09:00)
[2023-02-26] MEDS ORDERED: CLONIDINE HCL 0.1 MG TABLET ONE (17:14)
[2023-02-26] MEDS ORDERED: CLONIDINE HCL 0.1 MG TABLET PO PRN (17:30)
[2023-02-26] MEDS: ATORVASTATIN 40 MG TABLET PO SCH (20:42)
[2023-02-26] MEDS: QUETIAPINE FUMARATE 25 MG TAB PO SCH (20:42)
[2023-02-26] MEDS: FAMOTIDINE 20MG TAB PO SCH (20:42)
[2023-02-27] VITALS (47 sets, daily range): BP systolic 124–181; BP diastolic 53–85; PULSE 55–80; RESP 13–33; O2SAT 97–98
[2023-02-27] MEDS: DEXMEDETOMIDINE 400MCG/NS100ML IV SCH ×3 (03:40→23:18)
[2023-02-27 05:21] LABS: BASOPHILS # (AUTO) 0.06 K/uL (0.00-0.20); BASOPHILS % (AUTO) 0.8 % (0.0-5.0); EOSINOPHILS # (AUTO) 0.69 K/uL (0.00-0.70); EOSINOPHILS % (AUTO) 9.4 % (0.0-8.0); HEMATOCRIT 25.8 % (36-48); IMMATURE GRANULOCYTE ABSOLUTE 0.06 K/uL (0-1); LYMPHOCYTES # (AUTO) 2.1 K/uL (1.0-4.8); LYMPHOCYTES % (AUTO) 29.1 % (21.0-51.0); MEAN CORPUSCULAR HEMOGLOBIN 28.1 pg (27.0-33.0); MEAN CORPUSCULAR HGB CONC 30.2 g/dL (32.0-36.0); MEAN CORPUSCULAR VOLUME 92.8 fL (79-99); MONOCYTES # (AUTO) 0.9 K/uL (0.1-1.0); MONOCYTES % (AUTO) 12.5 % (3.0-13.0); NEUTROPHILS # (AUTO) 3.5 K/uL (1.8-7.7); NEUTROPHILS % (AUTO) 47.4 % (40.0-77.0); NUCLEATED RED BLOOD CELLS 0.3 % (0.0-0.19); PLATELET COUNT (AUTO) 313 K/uL (130-400); RED BLOOD CELL COUNT(AUTO) 2.78 MIL/uL (4.00-5.50); RED CELL DISTRIBUTION WIDTH 15.6 % (11.0-15.5); WHITE BLOOD COUNT (AUTO) 7.4 K/uL (4.8-10.8)
[2023-02-27 05:27] LABS: ALBUMIN 1.4 g/dL (3.5-5.0); ASPARTATE AMINOTRANSFERASE 18 U/L (10-37); BILIRUBIN,TOTAL 0.3 mg/dL (0.2-1.0); CARBON DIOXIDE 26 mmol/L (21-32); CHLORIDE 105 mmol/L (101-111); GLOMERULAR FILTR. RATE CALC 13 mL/min (>90); GLUCOSE,RANDOM 144 mg/dL (70-105); SODIUM SERUM 140 mmol/L (136-145); TOTAL PROTEIN, SERUM 5.4 g/dL (6.0-8.3); UREA NITROGEN, BLOOD 60 mg/dL (7-18)
[2023-02-27 05:28] LABS: ALANINE AMINOTRANSFERASE < 6 U/L (12-78)
[2023-02-27 05:45] LABS: B-TYPE NATRIURETIC PEPTIDE 4650 pg/mL (0-100)
[2023-02-27] MEDS: BUMETANIDE 1MG/4ML VIAL IVP SCH ×2 (08:50→20:05)
[2023-02-27] MEDS: PSYLLIUM SEED 1 EACH PACKET PO SCH ×2 (08:51→20:06)
[2023-02-27] MEDS: ASPIRIN 81MG CHEW TAB PO SCH (08:51)
[2023-02-27] MEDS: ENOXAPARIN SODIUM 30 MG/0.3 ML SQ SCH (08:51)
[2023-02-27] MEDS: QUETIAPINE FUMARATE 25 MG TAB PO SCH ×2 (08:51→20:06)
[2023-02-27] MEDS: METOPROLOL TARTRATE 25 MG TAB PO SCH ×2 (08:51→20:06)
[2023-02-27] MEDS: DOCUSATE SODIUM 100 MG CAP PO SCH ×2 (08:52→20:05)
[2023-02-27] MEDS: CLOPIDOGREL 75MG TAB PO SCH (08:55)
[2023-02-27] MEDS: EPOETIN ALFA-EPBX (NON-ESRD) 10,000 UNIT/ML VIAL SQ SCH (08:57)
[2023-02-27] MEDS ORDERED: Furosemide (10:32)
[2023-02-27] MEDS: ATORVASTATIN 40 MG TABLET PO SCH (20:06)
[2023-02-27] MEDS: FAMOTIDINE 20MG TAB PO SCH (20:06)
[2023-02-28] VITALS (23 sets, daily range): BP systolic 130–160; BP diastolic 56–77; PULSE 56–108; RESP 18–30; TEMP 100.1; O2SAT 95–99
[2023-02-28] MEDS: DEXMEDETOMIDINE 400MCG/NS100ML IV SCH ×2 (03:54→06:30)
[2023-02-28 04:18] LABS: ALANINE AMINOTRANSFERASE < 6 U/L (12-78); ALBUMIN 1.4 g/dL (3.5-5.0); ASPARTATE AMINOTRANSFERASE 20 U/L (10-37); BILIRUBIN,TOTAL 0.2 mg/dL (0.2-1.0); CARBON DIOXIDE 27 mmol/L (21-32); CHLORIDE 105 mmol/L (101-111); CREATININE 3.9 mg/dL (0.5-1.5); GLOMERULAR FILTR. RATE CALC 13 mL/min (>90); GLUCOSE,RANDOM 188 mg/dL (70-105); SODIUM SERUM 139 mmol/L (136-145); TOTAL PROTEIN, SERUM 5.4 g/dL (6.0-8.3); UREA NITROGEN, BLOOD 60 mg/dL (7-18)
[2023-02-28 05:53] LABS: BASOPHILS # (AUTO) 0.05 K/uL (0.00-0.20); BASOPHILS % (AUTO) 0.5 % (0.0-5.0); EOSINOPHILS # (AUTO) 0.57 K/uL (0.00-0.70); EOSINOPHILS % (AUTO) 5.9 % (0.0-8.0); HEMATOCRIT 25.4 % (36-48); IMMATURE GRANULOCYTE ABSOLUTE 0.12 K/uL (0-1); LYMPHOCYTES # (AUTO) 2.3 K/uL (1.0-4.8); LYMPHOCYTES % (AUTO) 23.7 % (21.0-51.0); MEAN CORPUSCULAR HEMOGLOBIN 27.8 pg (27.0-33.0); MEAN CORPUSCULAR HGB CONC 29.9 g/dL (32.0-36.0); MONOCYTES # (AUTO) 1.2 K/uL (0.1-1.0); MONOCYTES % (AUTO) 12.4 % (3.0-13.0); NEUTROPHILS # (AUTO) 5.4 K/uL (1.8-7.7); NEUTROPHILS % (AUTO) 56.3 % (40.0-77.0); NUCLEATED RED BLOOD CELLS 0.2 % (0.0-0.19); PLATELET COUNT (AUTO) 330 K/uL (130-400); RED BLOOD CELL COUNT(AUTO) 2.73 MIL/uL (4.00-5.50); RED CELL DISTRIBUTION WIDTH 15.7 % (11.0-15.5); WHITE BLOOD COUNT (AUTO) 9.7 K/uL (4.8-10.8)
[2023-02-28 06:10] LABS: B-TYPE NATRIURETIC PEPTIDE 3980 pg/mL (0-100)
[2023-02-28] MEDS: PSYLLIUM SEED 1 EACH PACKET PO SCH ×2 (09:00→20:33)
[2023-02-28] MEDS: ENOXAPARIN SODIUM 30 MG/0.3 ML SQ SCH (09:00)
[2023-02-28] MEDS: METOPROLOL TARTRATE 25 MG TAB PO SCH ×2 (09:00→20:32)
[2023-02-28] MEDS: BUMETANIDE 1 MG TAB PO SCH ×2 (09:00→20:35)
[2023-02-28] MEDS: ASPIRIN 81MG CHEW TAB PO SCH (09:00)
[2023-02-28] MEDS: CLOPIDOGREL 75MG TAB PO SCH (09:00)
[2023-02-28] MEDS: QUETIAPINE FUMARATE 25 MG TAB PO SCH ×2 (09:00→20:35)
[2023-02-28] MEDS: DOCUSATE SODIUM 100 MG CAP PO SCH ×2 (10:17→20:36)
[2023-02-28] MEDS ORDERED: BISACODYL 10 MG SUPP.RECT RC PRN (11:00)
[2023-02-28] MEDS ORDERED: BISACODYL 10 MG SUPP.RECT RC ONE (11:00)
[2023-02-28] MEDS: IPRATROPIUM/ALBUTEROL SULFATE 3 ML SOLUTION IH SCH ×2 (19:14→23:26)
[2023-02-28] MEDS: FAMOTIDINE 20MG TAB PO SCH (20:31)
[2023-02-28] MEDS: ACETAMINOPHEN 325 MG TAB PO PRN (20:35)
[2023-02-28] MEDS: ATORVASTATIN 40 MG TABLET PO SCH (20:35)
[2023-03-01] VITALS (11 sets, daily range): BP systolic 134–170; BP diastolic 62–92; PULSE 81–110; RESP 18–22; O2SAT 94–98
[2023-03-01] MEDS: IPRATROPIUM/ALBUTEROL SULFATE 3 ML SOLUTION IH SCH ×3 (06:56→18:35)
[2023-03-01] MEDS: CLOPIDOGREL 75MG TAB PO SCH (08:25)
[2023-03-01] MEDS: ASPIRIN 81MG CHEW TAB PO SCH (08:25)
[2023-03-01] MEDS: PSYLLIUM SEED 1 EACH PACKET PO SCH ×2 (08:25→20:48)
[2023-03-01] MEDS: BUMETANIDE 1 MG TAB PO SCH ×2 (08:25→20:47)
[2023-03-01] MEDS: QUETIAPINE FUMARATE 25 MG TAB PO SCH ×2 (08:25→20:47)
[2023-03-01] MEDS: DOCUSATE SODIUM 100 MG CAP PO SCH ×2 (08:25→20:47)
[2023-03-01] MEDS: EPOETIN ALFA-EPBX (NON-ESRD) 10,000 UNIT/ML VIAL SQ SCH (08:26)
[2023-03-01] MEDS: METOPROLOL TARTRATE 25 MG TAB PO SCH ×2 (08:26→20:48)
[2023-03-01] MEDS: ENOXAPARIN SODIUM 30 MG/0.3 ML SQ SCH (08:29)
[2023-03-01] MEDS: FAMOTIDINE 20MG TAB PO SCH (20:47)
[2023-03-01] MEDS: ATORVASTATIN 40 MG TABLET PO SCH (20:47)
== END 2023-03-01 22:45 | disposition left against medical advice (07) | DRG 235 ==
LOC: 2DH 17:22 → 2BH 02-20 16:33 → 2DH 02-24 16:18 → 2BH 02-25 11:16 → 2DH 02-28 13:15
PROVIDERS: ADMIT Internal Medicine Pulmonary Disease; ATTEND Internal Medicine Pulmonary Disease
PROC: 5A1945Z Respiratory Ventilation, 24-96 Consecutive Hours (ICD-10-PCS; 2023-02-20)
PROC: 0BH17EZ Insertion of Endotracheal Airway into Trachea, Via Natural or Artificial Opening (ICD-10-PCS; 2023-02-20)
PROC: 02100Z9 Bypass Coronary Artery, One Artery from Left Internal Mammary, Open Approach (ICD-10-PCS; principal; 2023-02-20 16:16)
PROC: 021009W Bypass Coronary Artery, One Artery from Aorta with Autologous Venous Tissue, Open Approach (ICD-10-PCS; 2023-02-20 16:16)
PROC: 5A02210 Assistance with Cardiac Output using Balloon Pump, Continuous (ICD-10-PCS; 2023-02-20 16:16)
PROC: B24BZZ4 Ultrasonography of Heart with Aorta, Transesophageal (ICD-10-PCS; 2023-02-20 16:16)
DX: I25.10 Atherosclerotic heart disease of native coronary artery without angina pectoris (principal); G93.41 Metabolic encephalopathy; I21.4 Non-ST elevation (NSTEMI) myocardial infarction; I50.43 Acute on chronic combined systolic (congestive) and diastolic (congestive) heart failure; J96.01 Acute respiratory failure with hypoxia; N18.5 Chronic kidney disease, stage 5; N17.9 Acute kidney failure, unspecified; D62 Acute posthemorrhagic anemia; F05 Delirium due to known physiological condition; I13.2 Hypertensive heart and chronic kidney disease with heart failure and with stage 5 chronic kidney disease, or end stage renal disease; Z68.41 Body mass index [BMI] 40.0-44.9, adult; E11.22 Type 2 diabetes mellitus with diabetic chronic kidney disease; I42.9 Cardiomyopathy, unspecified; E66.01 Morbid (severe) obesity due to excess calories; G47.33 Obstructive sleep apnea (adult) (pediatric); E11.65 Type 2 diabetes mellitus with hyperglycemia; E78.00 Pure hypercholesterolemia, unspecified; I25.5 Ischemic cardiomyopathy; J98.4 Other disorders of lung; Z99.2 Dependence on renal dialysis; Z91.199 Patient's noncompliance with other medical treatment and regimen due to unspecified reason; Z91.119 Patient's noncompliance with dietary regimen due to unspecified reason
CPT/HCPCS: 36415; 36600; 70450; 71045; 76770; 80048; 80053; 80061; 81001; 82140; 82330; 82435; 82570; 82803; 82947; 82948; 83036; 83540; 83550; 83605; 83735; 83880; 83970; 84100; 84132; 84145; 84156; 84295; 84484; 85018; 85025; 85027; 85347; 85610; 85730; 86850; 86900; 86901; 86923; 87040; 87088; 87641; 93005; 93306; 93312; 93356; 93880; 94002; 94003; 94010; 94150; 94640; 94664; A4344; A7048; C1729; G0378; J0171; J0610; J0690; J1644; J1650; J1756; J1815; J1940; J2001; J2250; J2270; J2405; J2440; J2704; J2720; J3010; J3475; J3480; J3486; J3490; J7030; J7040; J7050; J7070; A4315; A4351; A4452; A4605; A4649; A4930; A6204; A6219; A7040; C1713; C1776; C1887; G0168; Q5106

== ENCOUNTER 2023-03-20 16:17 | Emergency (ER) | payer OTHER ==
[~2023-03-20] VITALS: Ht 157.5 cm; Wt 90.7 kg
[~2023-03-20 16:17] MED LIST: Furosemide; LISI40TA9 PO
[2023-03-20 16:38] VITALS: BP 176/84; PULSE 85; RESP 16; O2SAT 93
== END 2023-03-20 17:47 | disposition left against medical advice (07) ==
LOC: EDH 16:17
DX: Z48.02 Encounter for removal of sutures (principal); Z53.21 Procedure and treatment not carried out due to patient leaving prior to being seen by health care provider
CPT/HCPCS: 99281

== ENCOUNTER 2023-03-27 13:48 | Emergency (ER) | payer OTHER ==
[~2023-03-27] VITALS: Ht 165.1 cm; Wt 99.8 kg
[2023-03-27 14:43] VITALS: BP 194/101; PULSE 76; RESP 16
== END 2023-03-27 20:39 | disposition home or self-care (01) ==
LOC: EDH 13:48
DX: S71.112D Laceration without foreign body, left thigh, subsequent encounter (principal); E11.9 Type 2 diabetes mellitus without complications; E78.00 Pure hypercholesterolemia, unspecified; I10 Essential (primary) hypertension; Z79.899 Other long term (current) drug therapy; Z95.1 Presence of aortocoronary bypass graft; X58.XXXD Exposure to other specified factors, subsequent encounter
CPT/HCPCS: 99282